=== PATIENT | male | born 1960 | race Caucasian/White ===

== ENCOUNTER 2019-06-05 09:34 | Emergency (ER) | payer OTHER ==
[2019-06-05 09:58] VITALS: BP 176/96
--- NOTE | 2019-06-05 10:42 | UC ---
Upper Extremity HPI - HPI Summary HPI Summary: The 58-year-old male comes in with a chief complaint of right elbow pain and swelling. Started about a week ago. He did have some trauma couple of weeks ago but no trauma just prior to the swelling of the pain. Does have some redness at the site of the swelling. No fevers no chills. Feels well. No decreased range of motion. Some pain with palpation and movement of the elbow. - History of Current Complaint Chief Complaint: UCUpperExtremity Stated Complaint: RT ELBOW COMPLAINT Time Seen by Provider: 06/05/19 10:40 Pain Intensity: 0 - Allergies/Home Medications Allergies/Adverse Reactions: Allergies Allergy/AdvReac Type Severity Reaction Status Date / Time No Known Allergies Allergy Verified 06/05/19 09:59 PMH/Surg Hx/FS Hx/Imm Hx Previously Healthy: Yes - Surgical History Surgical History: Yes Surgery Procedure, Year, and Place: cyst removed from finger and a foot - Family History Known Family History: Positive: Non-Contributory - Social History Alcohol Use: Daily Substance Use Type: None Smoking Status (MU): Former Smoker When Did the Patient Quit Smoking/Using Tobacco: 2014 Review of Systems All Other Systems Reviewed And Are Negative: Yes Constitutional: Positive: Negative Skin: Positive: Other - SEE HPI Eyes: Positive: Negative ENT: Positive: Negative Respiratory: Positive: Negative Cardiovascular: Positive: Negative Gastrointestinal: Positive: Negative Motor: Positive: Negative Neurovascular: Positive: Negative Musculoskeletal: Positive: Other: - SEE HPI Neurological: Positive: Negative Psychological: Positive: Negative Is Patient Immunocompromised?: No Physical Exam Triage Information Reviewed: Yes Appearance: Well-Appearing, No Pain Distress, Well-Nourished Vital Signs: Initial Vital Signs Temp 98.8 F 06/05/19 09:54 Pulse 63 06/05/19 09:54 Resp 15 06/05/19 09:54 BP 176/96 06/05/19 09:54 Pulse Ox 99 06/05/19 09:54 Vital Signs Reviewed: Yes Eye Exam: Normal Eyes: Positive: Conjunctiva Clear Neck: Positive: Supple Respiratory: Positive: No respiratory distress Musculoskeletal: Positive: Strength Intact, ROM Intact, Other: - On the right elbow there is swelling over the olecranon process consistent with a swollen bursa. It is mildly tender to palpation and fluctuant. There is a 1.5 cm area of erythema. No streaking or no diffuse erythema. Neurological: Positive: Alert Psychological: Positive: Age Appropriate Behavior Skin: Positive: Other - On the right elbow there is swelling over the olecranon bursa with a 1.5 cm area of erythema. Upper Extremity Course/Dx - Course Course Of Treatment: Liquid Yeast Supervisor: Lise Baer S, ([id number]) Cash Accountant: DEEPAK (RAZANCE) Report Date: 06/05/2019 09:58:00 Report Status: Final Start of Report Content ===== Patient Name: KEVYN POLANCO Medical Record#: [id number] Ordering Physician: Logan Ulrich MD Acct.#: [id number] : 1960 Age: 58 Sex: M Location : [facility] Exam Date: 06/05/19957 ADM Status: REG ER Order Information: ELBOW RIGHT 3+ VWS Accession Number: [id number] CPT: 18931 Indication: Right elbow pain. 4 views of the right elbow demonstrates no fracture. No other bone or joint abnormality is identified. Soft tissue swelling over the olecranon bursa is noted. IMPRESSION: No fracture is noted. Soft tissue swelling over the olecranon bursa is present. 06/05/19 1011 Dictated By: Lise Baer MD Dictated Date/Time: 06/05/19 1009 Transcribed Date/Time: 06/05/19 1009 Copy to: CC:[facility]; No Primary Care Phys,NOPCP ; Logan Ulrich MD [facility] [address] [place] [address] ph ([phone]) ph [phone]) ) End of Report Content === I discussed the x-rays with the patient. At this time it appears that there are some skin infection over the bursa and the bursa itself is not tender or obviously infected. I considered drainage however my concern would be passing a needle through infected skin and there is infection into the bursa if there is not infection there already. At this time the plan is to treat with Keflex and ice and anti-inflammatories. If the patient gets worse he is to go the emergency department. Patient is a [place] patient and he stated he would plan to go to the [facility] emergency department if necessary. - Differential Dx/Diagnosis Provider Diagnosis: Olecranon bursitis, right elbow Discharge ED - Sign-Out/Discharge Documenting (check all that apply): Patient Departure All imaging exams completed and their final reports reviewed: Yes - Discharge Plan Condition: Stable Disposition: HOME Prescriptions: Cephalexin CAP* [Keflex CAP*] 500 mg PO QID #40 cap Patient Education Materials: Elbow Bursitis (ED) Referrals: Sebas Burns MD [Medical Doctor] - Additional Instructions: FOLLOW UP WITH YOUR [place] DOCTOR OR ORTHOPEDICS IF NOT COMPLETELY IMPROVED. GET REEVALUATED SOONER IF NOT IMPROVING OR GO TO THE EMERGENCY DEPARTMENT IF YOUR CONDITION WORSENS OR ANY QUESTIONS OR CONCERNS - Billing Disposition and Condition Condition: STABLE Disposition: Home
== END 2019-06-05 11:00 | disposition home or self-care (01) ==
LOC: UCCORT 09:34
DX: M70.21 Olecranon bursitis, right elbow (principal); Z87.891 Personal history of nicotine dependence
CPT/HCPCS: 99202; G0463